=== PATIENT | male | born 1960 | race Caucasian/White ===

== ENCOUNTER 2024-11-12 15:09 | Day surgery (SDC) | payer OTHER ==
[~2024-11-12] VITALS: Ht 180.3 cm; Wt 68.4 kg
[2024-11-12] VITALS (7 sets, daily range): BP systolic 101–122; BP diastolic 71–82; PULSE 64–83; RESP 12–16; O2SAT 98–100
--- NOTE | 2024-11-12 16:01 | ELECTROCARDIOGRAPH REPORT ---
[facility] Test Date: 2024-11-12 Test Time: 15:57:38 Pat Name: BRANDIE YAP Department: [facility]-OR Patient ID: [id number] Room: Gender: M Emergency Vehicle Dispatcher: : [id number] Requested By: CHERYL PEREZ Order Number: [id number] Reading MD: Dr. Noelle Wallace Measurements Intervals Iselin Rate: 70 P: 53 CT: 190 QRS: -47 QRSD: 110 T: 48 QT: 398 QTc: 430 Interpretive Statements Sinus rhythm LAD, consider left anterior fascicular block Low voltage, precordial leads Abnormal R-wave progression, early transition Electronically Signed On 11-12-2024 18:54:[address] Noelle Wallace Please click the below link to view image of tracing.
[2024-11-12] MEDS: famotidine 20mg tablet PO ONE (16:13)
[2024-11-12] MEDS: ringers solution, lacted 1,000 ML IV SCH (16:13)
[2024-11-12] MEDS: ceFAZolin 2gm in dextrose, iso 50 ML IV ONE (16:14)
[2024-11-12] MEDS ORDERED: bacitracin 15gm ointment TP ONE (16:15)
[2024-11-12] MEDS ORDERED: sevoflurane 250ml liquid IH ONE (16:37)
[2024-11-12] MEDS ORDERED: midazolam 1 mg/ML 2ml injection ONE (16:42)
[2024-11-12] MEDS ORDERED: fentaNYL /PF 50mcg/ml 5ml ampule ONE (16:44)
[2024-11-12] MEDS ORDERED: EMPA1TAB7 PO (17:00)
[2024-11-12] MEDS ORDERED: ROSU40TA PO (17:01)
[2024-11-12] MEDS ORDERED: ASPI-529 PO (17:01)
[2024-11-12] MEDS ORDERED: FISH OIL (17:01)
[2024-11-12] MEDS ORDERED: propofol inj 20 ML IV ONE (17:11)
[2024-11-12] MEDS: BUPIVAcaine/PF 2.5 mg/ml (0.25%) 30ml vial IJ ONE (17:14)
[2024-11-12] MEDS ORDERED: dexamethasone sod phosphate 4mg/ml inj. ONE (17:41)
[2024-11-12] MEDS ORDERED: ondansetron/PF 4mg/2ml inj ONE (17:41)
[2024-11-12] MEDS ORDERED: acetaminophen 1,000mg/100ml IV 100 ML IV ONE (17:44)
[2024-11-12] MEDS ORDERED: ringers solution, lacted 1,000 ML IV SCH (18:05)
[2024-11-12] MEDS ORDERED: morphine 2 MG/ML inj. syringe IV PRN (18:05)
[2024-11-12] MEDS ORDERED: ketorolac trometh 30MG/ML vial 30 MG/ML VIAL IV ONE (18:05)
[2024-11-12] MEDS ORDERED: morphine 4 MG/ML inj SYRINge IV PRN (18:05)
[2024-11-12] MEDS ORDERED: labetalol 20mg/4ml (5mg/ml) syringe IV PRN (18:05)
[2024-11-12] MEDS ORDERED: ondansetron/PF 4mg/2ml inj IV PRN (18:05)
[2024-11-12] MEDS ORDERED: HYDROmorphone/PF 0.2 MG/ML SYRINGE IV PRN ×2 (18:05)
--- NOTE | 2024-11-12 19:27 | OPERATIVE REPORT ---
DATE OF SURGERY: 11/12/2024 DICTATING PHYSICIAN: Chidi Underwood MD PREOPERATIVE DIAGNOSIS: Laceration extensor pollicis longus and brevis tendons, right thumb at the level of the metacarpophalangeal joint. POSTOPERATIVE DIAGNOSIS: Laceration extensor pollicis longus and brevis tendons, right thumb at the level of the metacarpophalangeal joint. PROCEDURE PERFORMED: Exploration and open repair of the extensor pollicis brevis and longus tendons. SURGEON: Chidi Underwood MD TORCH SHEARER: No operations administrative assistant. ANESTHESIA: General anesthesia. ANESTHESIOLOGIST: Dr. Douglas ESTIMATED BLOOD LOSS: Nil or scant. Tourniquet time was less than an hour. INDICATIONS AND TECHNIQUE: This is a patient who suffered an acute laceration within the last 24 hours after a shower door shattered trying to close it. He suffered a laceration which was evaluated in the Emergency Room and found to have a disruption of the extensor pollicis longus and brevis tendons. He is unable to actively extend his thumb. The patient was informed of the need of urgent/emergent repair in an attempt to restore normal function and extension to this thumb. He presented to my office the following day with confirmation of disruption of the extensor pollicis longus and brevis tendons on clinical examination. Based on the findings, emergent repair was felt to be optimal and the patient agreed and signed the informed consent. Once this was accomplished, the patient was prepared for surgery after a thumb spica splint was reapplied in my office. DESCRIPTION OF PROCEDURE: Taken to the operating room next available OR time. I signed his extremity. He was given prophylactic intravenous antibiotics per protocol, taken to the operating room and given a general anesthetic after being placed on the OR table in the supine position. The right arm was prepped and draped in the usual sterile orthopedic fashion. A well-padded upper arm tourniquet was used. Surgical timeout was taken per protocol and the case was begun. An Esmarch was used for exsanguination. The tourniquet was insufflated to 250 mmHg. The laceration was a 1.5 cm laceration, this was transverse and just proximal to the metacarpophalangeal joint level. Sutures were removed and the wound was explored. I ended up having to do a [id number] incision while the more posterior incision was extended distally, the more anterior incision was extended proximally by 2 inches and the dissection was then carried down to expose the extensor mechanisms. Retrieval of the extensor pollicis brevis was accomplished after having found that it was folded over on itself. The extensor pollicis longus tendon required further dissection posteriorly to retrieve it. It was settled within the tunnel and it had not retracted past the Ashley's tubercle. Distally, the attachment sites for the pollicis brevis and pollicis longus tendons were seen at the level of the retinaculum and were easily exposed by extension of the thumb and further dissection of the soft tissue. Meticulous care was used to protect the digital nerves. Repair was accomplished with 4-0 Prolene using locking horizontal mattress sutures achieving end-to-end repair without shortening. [place] of the extensor function to the thumb was felt to have been achieved this way. Copious antibiotic irrigation was accomplished with Irrisept and closure of the skin was accomplished with 4-0 nylon interrupted using corner horizontal mattress sutures and vertical mattress sutures for the balance of the incision and laceration site. Antibiotic ointment and Xeroform dressings were applied. Telfa dressing was applied. Sterile gauze was applied as well as sterile soft roll to hold the thumb in an extended position and the wrist in slight extension and radial deviation to take the pressure off of the repair. Tourniquet had been released. Good distal pulses and capillary refill had returned to the hand and wrist. The thumb had good capillary refill. The thumb spica splint was allowed to harden using plaster and significant soft roll to protect any pressure points. The patient was now extubated and taken to the recovery room in stable condition. There were no apparent perioperative complications. Needle and sponge count was reported to be correct. Chidi Underwood MD TID: [id number] RECEIPT: [id number] CHANTE/AI
== END 2024-11-12 19:33 | disposition home or self-care (01) ==
LOC: OR 15:09
PROVIDERS: ATTEND Orthopaedic Surgery
DX: S66.221A Laceration of extensor muscle, fascia and tendon of right thumb at wrist and hand level, initial encounter (principal); E11.9 Type 2 diabetes mellitus without complications; I25.10 Atherosclerotic heart disease of native coronary artery without angina pectoris; I10 Essential (primary) hypertension; X58.XXXA Exposure to other specified factors, initial encounter; Y93.89 Activity, other specified; Y92.89 Other specified places as the place of occurrence of the external cause; Y99.2 Volunteer activity; Z79.899 Other long term (current) drug therapy; Z98.890 Other specified postprocedural states
CPT/HCPCS: 26418; 82948; 93005; A6222; J0131; J0690; J1100; J2250; J2405; J2704; J3010; J3490; J7030; J7120; Z7506; Z7508; Z7512; A4618; A6258; A6449; A7000